=== PATIENT | female | born 1980 | race Caucasian/White ===

== ENCOUNTER 2016-10-18 17:58 | Inpatient (IN) | payer OTHER ==
--- NOTE | ~2016-10-18 | TOC ---
Unit #: [id number] #: [id number] Patient: GABRIEL WATERS [id number] [address] [place], [place] [address] [id number] MR#: [id number] NAME: GABRIEL WATERS ROOM: 234 Age: 36 Sex: F Admission Date: 10/19/2016 : 1980 Attending Physician: Adriane Calderon M.D. Primary Care Physician: No Primary Care Physician TRANSFER OF CARE SUMMARY PRINCIPAL DIAGNOSES 1. Thickening in the terminal ileum with pending pathology. 2. Intractable nausea and vomiting secondary to a gastroenteritis, question infections versus other. 3. Hypokalemia. 4. Moderate protein malnutrition. 5. Amphetamine abuse. 6. Tobaccoism. 7. Home incarceration. 8. Migraine headaches. 9. Obesity. CONSULTANTS Dr. Pleitez, gastroenterology and Dr. Hassan, general surgery. PROCEDURES 1. Exploratory laparotomy on 10/21/2016 with full thickness biopsy of the terminal ileum. There was no evidence of small bowel obstruction. 2. CT of the abdomen and pelvis with contrast on 10/19/2016 with multiple inflamed thickened small bowel loops involving the ileum and distal jejunum, this is resulting in proximal bowel dilatation. This is similar to prior studies but appears somewhat increased. A 1.5 cm right ovary cyst and prior cholecystectomy also noted. 3. Small bowel follow through on 10/20/2016 with a high grade small bowel obstruction noted. CLINICAL HISTORY AND HOSPITAL COURSE Ms. Waters is a 36-year-old female who presents to the emergency department with intractable nausea and vomiting. The patient does have a history of nausea and vomiting in the past with abnormal CT scans for which multiple imaging studies, colonoscopy and EGD were negative for Crohn disease, though patient did have a significant lymphocytic predominance of the bowel wall. CT scan here revealed worsening based upon baseline and patient was admitted for further evaluation. Patient remained afebrile and her white blood cell count was unremarkable. Dr. Pleitez was consulted. Patient's nausea and vomiting improved and she was subsequently tolerating a diet. However, small bowel follow through was done revealing what appeared to be a high grade small bowel obstruction. Patient was made NPO and G-tube was placed and LSA was consulted. The following morning, patient had significant increase in abdominal pain and patient was emergently taken for exploratory surgery to evaluate for small bowel obstruction but none was seen. Unit #: [id number] #: [id number] Patient: GABRIEL WATERS Dictated by... Adriane Calderon M.D. KATHY/gavin TD: 10/22/2016 12:36 JOB #: [id number] TRANSFER OF CARE SUMMARY Page 1 of 1 X Adriane Calderon MD X TRANSFER OF CARE SUMMARY
--- NOTE | ~2016-10-18 | CR236 ---
[facility] A Service of [facility] RADIOLOGY TEXT RESULTS PATIENT: GABRIEL LEE LOCATION: [facility] : 81 UNIT #: [id number] AGE: [address]: Adriane Calderon MD SEX: F ORDER DR: [id number] [facility] [address] [facility]. [place], [place] [address] [id number] I MR#: [id number] Acc #: [id number] NAME: GABRIEL LEE : 1980 SEX: F STUDY DATE/TIME: 10/20/2016 7:34 UNIT: [facility] ROOM: 234 STUDY DESCRIPTION: CR Small Bowel Sbft W Films Attending Physician: Adriane Calderon M.D. Ordering Physician: Enid Conley Aprn Primary Care Physician: Jesica Primary Care Physician MEDICAL IMAGING REPORT This report is preliminary unless electronic signature is present EXAM Small bowel follow-through INDICATIONS Abdominal pain. Crohn disease. Small bowel obstruction. FINDINGS Serial AP radiographs of the abdomen were obtained. Construction Pit Worker radiograph shows dilated proximal small bowel loops consistent with small bowel obstruction. Following ingestion of oral contrast, there is delayed passage of contrast. The contrast fills the proximal small bowel loops without filling of the distal small bowel loops. Images were obtained for 7 hours and 45 minutes. I would recommend a followup abdominal radiograph in the morning. FLUOROSCOPY Fluoroscopy time 0 minutes, 0 fluoroscopic images acquired. IMPRESSION High grade small bowel obstruction with opacification of only the proximal small bowel up to 7 hours and 45 minutes. Dictated by... Jack Bucio M.D. THIS IS AN ELECTRONICALLY VERIFIED REPORT Jack Bucio M.D. at 10/21/2016 7:42 AM BRYAN/brigitte TD: 10/20/2016 17:18 JOB #: [id number] [facility] A Service of [facility] RADIOLOGY TEXT RESULTS PATIENT: GABRIEL LEE LOCATION: [facility] : 81 UNIT #: [id number] AGE: [address]: Adriane Calderon MD SEX: F ORDER DR: MEDICAL IMAGING REPORT Page 1 of 1 COPY
--- NOTE | ~2016-10-18 | TOC ---
Unit #: [id number] #: [id number] Patient: GABRIEL LEE [id number] [address] [place], [place] [address] [id number] I MR#: [id number] NAME: GABRIEL LEE ROOM: 234 Age: 36 Sex: F Admission Date: 10/19/2016 : 1980 Attending Physician: Ridge He M.D. Primary Care Physician: No Primary Care Physician TRANSFER OF CARE SUMMARY ADDENDUM Please note this is a continuation of a transfer of care note done on 10/22/2016. ADDITIONAL DISCHARGE DIAGNOSES 1. Moderate protein malnutrition. 2. Enteritis with inconclusive biopsy. 3. Hyperglycemia. HOSPITAL COURSE Following the patient's exploratory laparotomy she has been maintained on TPN for the last several days. Biopsy did not reveal any definite signs of Crohn. The patient had been placed on Solu-Cortef in anticipation of a positive biopsy, but this is negative. Attempts to obtain a follow-up small bowel followthrough unfortunately were unsuccessful, given she has retained contrast from small bowel followthrough last week. The patient has now been started on a full liquid diet and did have a small amount of pain, but no nausea or vomiting. She is having some loose stool as well, but this is nonbloody. Will continue with advanced diet and will be home when able to tolerate diet. Further hospital course to be dictated as an addendum. Dictated by... Adriane Calderon M.D. KATHY/arlene TD: 10/31/2016 10:34 JOB #: [id number] TRANSFER OF CARE SUMMARY Page 1 of 1 X Adriane Calderon MD TRANSFER OF CARE SUMMARY
--- NOTE | ~2016-10-18 | CR7 ---
[facility] A Service of [facility] RADIOLOGY TEXT RESULTS PATIENT: GABRIEL LEE LOCATION: [facility] 234-01 : 82 UNIT #: [id number] AGE: [address]: Adriane Calderon MD SEX: F ORDER DR: [id number] [facility]. [place], [place] [address] [id number] MR#: [id number] Acc #: [id number] NAME: GABRIEL LEE : 1980 SEX: F STUDY DATE/TIME: 10/21/2016 7:45 UNIT: [facility] ROOM: Critical access hospital STUDY DESCRIPTION: CR Abdomen Single AP View Attending Physician: Adriane Calderon M.D. Ordering Physician: Adriane Calderon M.D. Primary Care Physician: No Primary Care Physician MEDICAL IMAGING REPORT This report is preliminary unless electronic signature is present EXAM AP abdomen, 10/21/2016. HISTORY Abdominal pain for 1 week. Small bowel obstruction. Had a small bowel follow-through yesterday. COMPARISON Acute abdominal series 12/28/2015, CT abdomen and pelvis 10/19/2016, small bowel follow-through 10/20/2016. FINDINGS Retained contrast is demonstrated within a markedly abnormally dilated small bowel loop in the left mid abdomen and this bowel loop appears similar to the small bowel follow-through, 10/20/2016, at the 7-hour 45-minute time randall. Only scant contrast is seen more distally within decompressed small bowel loops and within the proximal ascending colon. Findings are compatible with the appearance of high-grade small bowel obstruction. IMPRESSION Findings are compatible with high-grade small bowel obstruction. Persistently abnormally dilated small bowel within the left mid abdomen containing a majority of enteric contrast from yesterday's small bowel follow-through. Only scant progression of contrast into the more distal decompressed small bowel loops and within the ascending colon. Dictated by... Deann Salgado M.D. THIS IS AN ELECTRONICALLY VERIFIED REPORT [facility] A Service of [facility] RADIOLOGY TEXT RESULTS PATIENT: GABRIEL LEE LOCATION: [facility] 234-01 : [birth year] UNIT #: [id number] AGE: [address]: Adriane Calderon MD SEX: F ORDER DR: Deann Salgado M.D. at 10/22/2016 8:32 AM MATT/brigitte TD: 10/21/2016 13:11 JOB #: [id number] MEDICAL IMAGING REPORT Page 1 of 1 COPY
--- NOTE | ~2016-10-18 | FU ---
[facility] Nutrition Therapy DATE: 10/29/16 Patient: GABRIEL LEE Physician: JAVAD Address: [address] Room/Bed: [address] [place] [address], Zip: [place] [id number] Admit Date: 10/19/16 Date of : [birth year] Height: 5 5 Weight: 214 97.5 NUTRITION MONITORING/FOLLOW-UP: Reason: PT SEEN FOR FOLLOW-UP/TPN DX: SBO, ENTERITIS, ABD PAIN, N/V Anthropometrics: 5'5", WT: 214# (97 KG), BMI: 35.6 -ADMIT WEIGHT: 199# Labs: GLU: 133, CREAT: 0.5, CA+:7.9, ALB: 2.8 (10/27/16), ALT: 8, PRE-ALB: 9.9, TGs: 61 Meds: TPN, LIPIDS, KCL, PROTONIX, MILK OF MAGNESIA, PHENERGAN, ZOFRAN I&O's: 2305/502, 2 BMs NOTED Skin: PREVIOUSLY NOTED Estimated Nutrition Needs: [id number] KCAL 91-109 G PRO Assessment: CHART REVIEWED AND EVENTS NOTED. PT SEEN FOR TPN FOLLOW-UP. PER RN AND CHART, TPN HAS BEEN D/C'D AFTER LAST CURRENT BAG (CURRENTLY AT 20 ML/HR). PT REPORTS TOLERATING FULL LIQUID DIET THIS AM FOR BREAKFAST, PLANS FOR REGULAR DIET FOR DINNER. THIS RD ENCOURAGED SLOW GRADUAL PO INTAKE, PT AGREED TO ENSURE SHAKES BID, RD TO ORDER. PT REPORTED NO DIET QUESTIONS AT THIS TIME. RD TO FOLLOW. Dx: INADEQUATE ORAL INTAKE R/T CLINICAL CONDITION, ENTERITIS AND SBO AEB NPO, TPN.-RESOLVED NEW DX: ALTERED NUTRIENT NEEDS R/T CURRENT CONDITION AEB PT ON FULL LIQUID DIET. Intervention: 1. FULL LIQUID DIET-REGULAR DIET LATER 2. ENSURE SHAKED BID Monitoring, Evaluation and Goals: 1. TPN; PROVIDE >80% ESTIMATED NUTRITIONAL NEEDS-MET/RESOLVED 2. LABS; GLU, LYTES-ACTIVE 3. GI; PROMOTE REGULAR GI FUNCTION-IN PROGRESS 4. SKIN; PROMOTE HEALING OF SURGICAL SITE-IN PROGRESS NEW GOALS: 1. ORAL INTAKE; ADVANCE DIET AND TOLERATE >50% OF MEALS AND SUPPLEMENTS W/NO C/O N/V/D MONITOR: [facility] Nutrition Therapy DATE: 10/29/16 Patient: GABRIEL LEE Physician: JAVAD Address: [address] Room/Bed: [address] [place] [address], Zip: [place] [address] Admit Date: 10/19/16 Date of : [birth year] Height: 5 5 Weight: 214 97.5 -PO INTAKE/APPETITE -WEIGHTS -SUPPLEMENT INTAKE Recommendations: 1. PLEAS ORDER STRAWBERRY ENSURE SHAKES BID W/MEALS 2. APPRECIATE FAMILY AND STAFF TO ENCOURAGE SLOW GRADUAL PO INTAKE 3. ADVANCE DIET TOLERATED TO LOW FIBER RD WILL F/U PER PROTOCOL PT IS MILD/MODERATELY COMPROMISED Respectfully, MINESH PERALTA MS, RD, LD [employer] [facility] cc: client file
--- NOTE | ~2016-10-18 | TOC ---
Unit #: [id number] #: [id number] Patient: GABRIEL LEE [id number] [address] [address] [id number] I MR#: [id number] NAME: GABRIEL LEE ROOM: 234 Age: 36 Sex: F Admission Date: 10/19/2016 : 1980 Attending Physician: Adriane Calderon M.D. Primary Care Physician: No Primary Care Physician TRANSFER OF CARE SUMMARY ADDENDUM HOSPITAL COURSE The patient underwent exploratory laparotomy but no small bowel obstruction was found; however, she did undergo biopsy of her terminal ileum with pathology currently pending. Postoperatively she is doing well but is complaining about a significant amount of pain; however, I will note patient does have some history of drug seeking behavior and we will try to control the pain as best as possible without possible side effects of Dilaudid. Further hospital course to be dictated as an addendum. Dictated by... Adriane Calderon M.D. KATHY/gavin TD: 10/23/2016 13:30 JOB #: [id number] TRANSFER OF CARE SUMMARY Page 1 of 1 X Adriane Calderon MD TRANSFER OF CARE SUMMARY
--- NOTE | ~2016-10-18 | HP ---
Unit #: [id number] #: [id number] Patient: GABRIEL LEE [id number] [address] [place], [place] [address] [id number] I MR#: [id number] NAME: GABRIEL LEE ROOM: 234 Age: 36 Sex: F Admission Date: 10/19/2016 : 1980 Attending Physician: Renea Lara M.D. Primary Care Physician: No Primary Care Physician HISTORY AND PHYSICAL CHIEF COMPLAINT Intractable nausea and vomiting with abdominal pain. HISTORY This 36-year-old female with recurrent admissions for abdominal pain and history of abnormal CT scans of the abdomen, migraine headaches, is admitted for abdominal pain. The patient states that she was well until two days prior to admission when she developed nonbloody nausea, vomiting and diarrhea with periumbilical pain, sweats and chills. She presented to this emergency department last evening when she was tachycardic. Was given Bentyl, Protonix and Reglan, along with IV fluids without improvement. CT scan therefore was performed showing patient's chronic abnormalities but somewhat worse. Multiple inflamed, thickened small bowel loops mainly in the ileum and distal jejunum with more proximal bowel dilatation. The appearance was similar but showed worsening diffuse distention of the small bowel. Patient has a history of recurrent abdominal pain and diarrhea. EGD in the past showed gastritis. Normal colonoscopy 2011, and repeat colonoscopy 10/2015 showed some abnormalities in the terminal ileum but pathology only revealed hyperplastic lymphoid tissue. CT scans in the past have been abnormal showing inflammatory versus infectious changes in the small bowel. A small bowel follow through 12/01/2015 revealed very long transit time through the small bowel with mild diffuse distention but no typical features of Crohn disease. PAST MEDICAL HISTORY 1. Recurrent admissions for abdominal pain with abnormal CT scans and negative workup for inflammatory bowel disease. Please see above details. 2. Migraine headaches. 3. Surgery for Arnold-Chiari malformation. 4. Cholecystectomy. 5. Appendectomy. 6. . ALLERGIES Penicillin and nonsteroidal inflammatory drugs causing hives. HOME MEDICATIONS None. Unit #: [id number] #: [id number] Patient: GABRIEL LEE FAMILY HISTORY Negative for GI disease. SOCIAL HISTORY The patient is living with her father and daughter. She currently is under home incarceration and has an ankle bracelet. Last menstrual period was 09/24/2016 and patient denies the possibility of . She smokes about a pack per day of tobacco, does not drink alcohol and denies illicit drug use. REVIEW OF SYSTEMS Notable for nausea, vomiting, diarrhea, abdominal pain, migraines, above mentioned surgeries, tobacco abuse. All other systems were reviewed and are otherwise negative. PHYSICAL EXAMINATION GENERAL: Pleasant, moderately obese 36-year-old female currently in no acute distress. VITAL SIGNS: Temperature 98.8, pulse 113, respirations 17, blood pressure 133/72, O2 saturation is 99% on room air. HEENT: Eyes - PERRLA, extraocular muscles are intact. Pharynx is benign and edentulous. NECK: Supple without adenopathy or thyromegaly. CHEST: Clear. CARDIAC: Normal S1 and S2 without S3, S4, or murmur. ABDOMEN: Bowel sounds are present. Patient has generalized abdominal tenderness on exam, which localizes more to the periumbilical region but no rebound guarding. No hepatosplenomegaly or masses. EXTREMITIES: Without clubbing, cyanosis or edema. Patient has a left ankle home incarceration brace present. Pedal pulses are present. NEUROLOGIC: Patient is awake, alert and oriented. Cranial nerves are intact. Equal strength throughout. DIAGNOSTIC STUDIES LABORATORY STUDIES: Hematocrit is 47.8, normal white count and platelet count. SMA 12 - normal lipase. IMAGING STUDIES: CT scan - markedly abnormal with multiple inflamed, thickened, small bowel loops, particularly around the ileum and distal jejunum with more proximal bowel dilatation. The degree of bowel distention is worse than before. Right ovarian cyst. ASSESSMENT 1. Intractable nausea, vomiting, and diarrhea with abdominal pain. Patient has a chronically abnormal CT scan of the abdomen but does appear to be worse. She is being admitted to rule out inflammatory bowel disease such as Crohn disease, although her workup in the past was negative for Crohn. 2. Home incarceration. 3. Tobacco abuse. 4. History of migraines. 5. Surgery for Arnold-Chiari malformation. PLANS 1. Stool cultures. 2. Obtain urinalysis. 3. Urine tox screen, although patient did received morphine in the ER, so urine tox screen will be positive for opiates. Unit #: [id number] #: [id number] Patient: GABRIEL LEE 4. IV fluids and supportive treatment. 5. GI consultation. 6. SCDs for DVT prophylaxis. 7. Patient denies but will check a beta HCG in the morning. Dictated by Renea Lara M.D. AML/ts TD: 10/19/2016 05:05 JOB #: [id number] HISTORY AND PHYSICAL Page 1 of 1 X Renea Lara MD X HISTORY AND PHYSICAL
--- NOTE | ~2016-10-18 | XA166 ---
[facility] A Service of [facility] RADIOLOGY TEXT RESULTS PATIENT: GABRIEL LEE LOCATION: [facility] 234-01 : 82 UNIT #: [id number] AGE: [address]: Adriane Calderon MD SEX: F ORDER DR: [id number] [place], [place] [address] [id number] I MR#: [id number] Acc #: [id number] NAME: GABRIEL LEE : 1980 SEX: F STUDY DATE/TIME: 10/22/2016 10:55 UNIT: [facility] ROOM: 234 STUDY DESCRIPTION: XA PICC Line Placement WO Port Attending Physician: Adriane Calderon M.D. Ordering Physician: Gerald España M.D. Primary Care Physician: Primary Care Physician No MEDICAL IMAGING REPORT This report is preliminary unless electronic signature is present EXAM Right-sided PICC line placement INDICATION Need for IV access in a patient with small bowel obstruction. PRE-PROCEDURE The procedure was explained to the patient and/or patient customer care representative including risks, benefits, potential complications and potential for alternative forms of treatment. Informed consent was obtained, and prior to initiating the procedure a formal timeout procedure was performed. PROCEDURE Using full standard sterile barrier technique, including caps, gowns, gloves, masks, as well as sterile skin preparation and standard sterile draping, the right arm was prepped and draped in the usual fashion, and real-time sterile ultrasound guidance was used to localize an arm vein and to confirm vessel patency. A hard copy ultrasound image was recorded. After local anesthesia with 1% Xylocaine, the vein was punctured using real-time sterile ultrasound guidance, and an 0.018 guidewire was advanced into the superior vena cava, using fluoroscopic guidance. A 5 Nepalese dual-lumen PICC was then measured and deployed with the tip positioned in the superior vena cava. The position of the line was documented with a radiographic image. The line was secured in place with an adhesive dressing and an antibiotic patch was applied. Total fluoro time was 0.1 minutes. AK was 1 mGy. IMPRESSION Successful placement of a 5 Nepalese dual-lumen Power PICC via the right arm under ultrasound and fluoroscopic guidance. The tip of the PICC is in good position in the superior vena cava. [facility] A Service of [facility] RADIOLOGY TEXT RESULTS PATIENT: GABRIEL LEE LOCATION: [facility] 234-01 : [birth year] UNIT #: [id number] AGE: [address]: Adriane Calderon MD SEX: F ORDER DR: Dictated by... Mary Ellen Castañeda M.D. THIS IS AN ELECTRONICALLY VERIFIED REPORT Mary Ellen Castañeda M.D. at 10/25/2016 3:53 PM CAMILLE/adalberto TD: 10/25/2016 09:08 JOB #: [id number] MEDICAL IMAGING REPORT Page 1 of 1 COPY
--- NOTE | ~2016-10-18 | DS ---
Unit #: [id number] #: [id number] Patient: GABRIEL LEE [id number] [address] [place], [place] [address] [id number] MR#: [id number] NAME: GABRIEL LEE ROOM: 234 Age: 36 Sex: F Admission Date: 10/19/2016 : 1980 Discharge Date: 11/01/2016 Attending Physician: Ridge He M.D. Primary Care Physician: No Primary Care Physician DISCHARGE SUMMARY FINAL DISCHARGE SUMMARY Please refer to Dr. Calderon's transfer of care summary dictated from both October 22 as well as October 29. After review and discussion from October 29 moving forward, the patient was placed on IV Solu-Medrol. She showed increased an appropriate response. She was able to tolerate diet well. She left the floor several times throughout her hospital stay. She was able to complete meals without any pain and/or difficulty. Once her narcotic pain medications were deescalated, the patient stated that she felt much better and subsequently requested discharge. The patient is to follow up with her electric mule driver as an outpatient for ongoing care, Dr. Pleitez in approximately 8 to 10 weeks. She will be given a prescription for prednisone taper, Ultram as well as Protonix. All questions were answered. The patient is stable for discharge home. FINAL DISCHARGE MEDICATIONS 1. Prednisone 40 mg x10 days, 30 mg x10 days, 20 mg x10 days, 10 mg x10 days. 2. Protonix 40 mg p.o. daily. 3. Ultram 50 mg p.o. q.8 p.r.n. Dictated by... Bhanu Parker/zoila TD: 11/03/2016 07:30 JOB #: [id number] DISCHARGE SUMMARY Page 1 of 1 X Ridge He MD X DISCHARGE SUMMARY
--- NOTE | ~2016-10-18 | OR ---
Unit #: [id number] #: [id number] Patient: GABRIEL LEE [id number] [facility]. [place] [id number] [facility]. [place], [place] [address] [id number] I MR#: [id number] NAME: GABRIEL LEE ROOM: 234 Date of Procedure: 10/19/2016 Admission Date: 10/19/2016 Surgeon: Kyle Hassan Jr., M.D. : 1980 Attending Physician: Adriane Calderon M.D. OPERATIVE REPORT INDICATIONS FOR PROCEDURE The patient is a 36-year-old white female, who has had recurrent problems with nausea, vomiting, and abdominal pain. It was felt she may have Crohn disease, also felt that she may have some partial small bowel obstruction or complete small bowel obstruction. She is brought to the operating room at this time for exploratory laparotomy, possible bowel resection for small bowel obstruction. PREOPERATIVE DIAGNOSIS Chronic recurrent small bowel obstruction. POSTOPERATIVE DIAGNOSIS Abnormal distal half of the small bowel with thickening, but no point of obstruction was noted. ANESTHESIA General with endotracheal intubation. SHIFT SUPERINTENDENT Lizzy Pederson. PROCEDURES PERFORMED Exploratory laparotomy, full-thickness small bowel biopsy of the distal ileum. DESCRIPTION OF PROCEDURE The patient was positioned in supine position. After being anesthetized and intubated, she was prepped and draped in routine fashion for exploration through midline incision. An incision was made extending from the upper midline approximately 3 to 4 inches above the umbilicus to 3 to 4 inches below the umbilicus to the left of the umbilicus. This was carried down through subcutaneous tissue down through the linea alba into the peritoneal cavity. Upon opening the peritoneal cavity, there was moderate ascitic fluid. This was all removed with the suction. The remainder of incision was opened with cutting edge of the Bovie cautery. The entire small bowel was run and there was no evidence of any adhesions blocking the bowel, but definitely the entire distal half of the small bowel was very thickened and felt abnormal. There was no significant fat wrapping around the bowel. The proximal bowel was slightly dilated chronically, but there was no major obstruction. In the area of the ligament of Treitz and proximal small bowel, the bowel was small in caliber. The entire abdomen was checked. There was no evidence of any Unit #: [id number] #: [id number] Patient: GABRIEL LEE other abnormalities. The cecum was dilated as well. The small bowel was evacuated back into the stomach by milking it. After this was complete, abdomen was copiously irrigated with saline solution and a small wedge piece of the anterior small bowel wall in the area of the distal ileum was then excised and the opening closed with continuous 3-0 Vicryl canal stitch followed by interrupted 3-0 silk Lembert sutures. After this was complete, the omentum was wrapped over the top and tacked in place with 2-0 silk sutures and the abdomen again irrigated with saline solution. After all saline was removed, the midline was closed with interrupted #1 Vicryl suture in a single fascial layer closure. Subcutaneous tissue was irrigated. After hemostasis achieved with Bovie cautery, skin edges were approximated with stainless-steel skin clips and skin stapling device. Sterile dressings were applied externally. Estimated blood loss less than 100 mL. The patient received less than 2000 mL crystalloid solution during the procedure. Sponges and instrument counts were correct x3. No drains were used. No complications. The patient was taken to the recovery room with stable vital signs in satisfactory condition. Dictated by... Kyle Hassan Jr., MAnjana JAVIER/arely TD: 10/22/2016 03:54 JOB #: [id number] OPERATIVE REPORT Page 1 of 1 X Kyle Hassan MD X PROCEDURE OPERATIVE NOTE
--- NOTE | ~2016-10-18 | CR7 ---
[facility] A Service of [facility] & [facility] RADIOLOGY TEXT RESULTS PATIENT: GABRIEL LEE LOCATION: C2A 234-01 : [birth year] UNIT #: [id number] AGE: [address]: Adriane Calderon MD SEX: F ORDER DR: [id number] [facility] [address] [facility]. [place], [place] [address] [id number] I MR#: [id number] #: [id number] NAME: GABRIEL LEE : 1980 SEX: F STUDY DATE/TIME: 10/27/2016 8:07 UNIT: C2A ROOM: 234 STUDY DESCRIPTION: CR Abdomen Single AP View Attending Physician: Adriane Calderon M.D. Ordering Physician: Saud Valentine M.D. Primary Care Physician: Primary Care Physician No MEDICAL IMAGING REPORT This report is preliminary unless electronic signature is present EXAM Supine radiograph of the abdomen, 10/27/2016 HISTORY Abdomen pain, resolving small bowel obstruction. Gastritis, enteritis, colitis brain surgery 2 years ago. Symptoms began 10/18/2016. Could not perform upper GI small bowel follow-through. Patient has contrast from 10/19/2016. FINDINGS Supine radiograph of the abdomen is presented. Comparison to studies dated 10/20 and 10/21/2016. Multiple surgical clips over the right upper quadrant. Surgical skin nina midline abdomen and pelvis. Bowel gas pattern abnormal. There is ongoing distension of small bowel loops measuring up to about 3.1 cm in diameter. This represents an improvement compared to 10/20 and 10/21. Small bowel loops measured up to 4.2 cm in diameter on 10/21. There is air and contrast material seen throughout the colon. This is felt to represent contrast material from the patient's small bowel follow through 10/20/2016 suggesting a significant delay in colonic transit. The colon is mildly distended but as noted there is contrast and air seen throughout the colon to the rectum. At this point, while partial ongoing small bowel obstruction is not excluded, the radiographic appearance may favor generalized ileus. Continued followup to resolution recommended. There is no free air. Visualized bony structures are unremarkable. Dictated by... Juanito Kuhn M.D. THIS IS AN ELECTRONICALLY VERIFIED REPORT Juanito Kuhn M.D. at 10/28/2016 6:42 PM MAI/vi [facility]. [facility] A Service of [facility] RADIOLOGY TEXT RESULTS PATIENT: GABRIEL LEE LOCATION: [place] [address] : [birth year] UNIT #: [id number] AGE: [address]: Adriane Claderon MD SEX: F ORDER DR: TD: 10/27/2016 16:13 JOB #: [id number] MEDICAL IMAGING REPORT Page 1 of 1 COPY
--- NOTE | ~2016-10-18 | CT2 ---
[facility] A Service of [facility] & [facility] RADIOLOGY TEXT RESULTS PATIENT: GABRIEL LEE LOCATION: C2A 234-01 : [birth year] UNIT #: [id number] AGE: [address]: Adriane Calderon MD SEX: F ORDER DR: [id number] [facility] [address] [facility] [place], [place] [address] [id number] I MR#: [id number] Acc #: [id number] NAME: GABRIEL LEE : 1980 SEX: F STUDY DATE/TIME: 10/19/2016 00:31 UNIT: C2A ROOM: 234 STUDY DESCRIPTION: CT Abd and Pelv W Cont Attending Physician: Adriane Calderon M.D. Ordering Physician: Juan Lomax M.D. Primary Care Physician: No Primary Care Physician MEDICAL IMAGING REPORT This report is preliminary unless electronic signature is present EXAM Abdomen and pelvis CT 10/19/2016 at 0031 INDICATIONS Abdominal pain, nausea, vomiting, and diarrhea, that started yesterday. TECHNIQUE Axial images were obtained through the abdomen and pelvis following IV contrast administration. Multiplanar reformats were obtained. This CT exam was performed with one or more of the following radiation dose reduction techniques: Automatic exposure control, adjustment of mA and/or kV according to patient size, and iterative reconstruction. COMPARISON Comparison made with 12/25/2015. FINDINGS ABDOMEN: Lung bases are clear. Gallbladder is surgically absent. No biliary obstruction. Solid abdominal organs are normal. The small bowel is markedly abnormal. Multiple distended loops of jejunum are present. The loops measure nearly 5 cm in diameter. Some of the loops demonstrate a marked degree of thickening in the wall. There is some adjacent mesenteric fat stranding. Findings are very similar in appearance to the prior study although the degree of bowel distension is increased. This is presumably due to inflammatory enteritis, possibly Crohn's disease. This involves predominantly distal jejunum and ileum. PELVIS: Urinary bladder is normal. There is a trace amount of dependent free fluid. The lower colon is normal. Abnormal ileal loops are present as above. The appendix is surgically absent by history. There does appear to be a small right ovarian cyst measuring 1.5 cm. IMPRESSION STS. [facility] A Service of [facility] & [facility] RADIOLOGY TEXT RESULTS PATIENT: GABRIEL LEE LOCATION: A 234-01 : [birth year] UNIT #: [id number] AGE: [address]: Adriane Calderon MD SEX: F ORDER DR: 1. Markedly abnormal examination. Multiple inflamed thickened small bowel loops, predominately involving the ileum and distal jejunum. This results in more proximal bowel dilatation. The inflammatory changes are very similar in appearance to the patient's prior study but the degree of bowel distension has increased. This presumably reflects inflammatory enteritis such as Crohn's. The colon is within normal limits. The appendix is surgically absent. 2. Cholecystectomy. 3. 1.5 cm right ovarian cyst. 4. Trace amount of free fluid which is presumably reactive. STAT * RESULT Dictated by... Pablito Paiz Jr., M.D. THIS IS AN ELECTRONICALLY VERIFIED REPORT Pablito Paiz Jr., M.D. at 10/19/2016 9:24 PM JAIME/steven TD: 10/19/2016 12:45 JOB #: [id number] MEDICAL IMAGING REPORT Page 1 of 1 COPY
--- NOTE | ~2016-10-18 | CO ---
Unit #: [id number] #: [id number] Patient: GABRIEL LEE [id number] [address] [address] [id number] I MR#: [id number] NAME: GABRIEL LEE ROOM: 234 Age: 36 Sex: F Admission Date: 10/19/2016 : 1980 Attending Physician: Adriane Calderon M.D. Consultation Date: 10/19/2016 CONSULTATION REPORT DICTATED FOR Fredrick Pleitez M.D. REASON FOR CONSULTATION Abnormal CT, possible Crohn disease. HISTORY OF PRESENT ILLNESS The patient is a 36-year-old female, who has presented with acute onset of abdominal pain, nausea, vomiting, and diarrhea. The patient has had multiple admissions in the past with similar presentation and similar abnormal CT findings. The patient has had extensive workup in the past including EGD, colonoscopy, as well as small-bowel follow-through. Last colonoscopy was in 10/2015, which was essentially normal without evidence of Crohn disease. Abdominal CT done in the emergency room showed multiple inflamed thickened small bowel loops. The findings are similar to previous exams except worsening diffuse distention of the small bowel. The patient also complains of chills, but no history of fever or overt gastrointestinal blood loss in the form of hematemesis, melena, or hematochezia. PAST MEDICAL HISTORY Recurrent admissions for abdominal pain with nausea and vomiting, migraine headaches. PAST SURGICAL HISTORY Surgery for Arnold-Chiari malformation, cholecystectomy, appendectomy, and . ALLERGIES Penicillin and NSAIDs. HOME MEDICATIONS None. FAMILY HISTORY None for colon or pancreatic cancer, or liver disease. No family history of inflammatory bowel disease. SOCIAL HISTORY The patient is living at home with her father and daughter. She smokes about a pack of cigarettes a day. Denies alcohol or illicit drug use. REVIEW OF SYSTEMS Detailed review of organ systems notable for nausea, vomiting, abdominal Unit #: [id number] #: [id number] Patient: GABRIEL LEE pain, diarrhea. No recent weight loss. No history of fever. No history of headache, seizures, chest pain, syncope. No history of cough or hemoptysis. No history of dysuria or hematuria. No history of overt GI bleed in the form of hematemesis, melena, or hematochezia. PHYSICAL EXAMINATION GENERAL: The patient is awake, alert, and oriented, appears uncomfortable, in no acute distress. VITAL SIGNS: Stable with temperature 98.7, blood pressure 119/82, heart rate 98, and respirations 20. HEENT: There is no pallor. No scleral icterus. No lymphadenopathy. No peripheral edema. LUNGS: Clear to auscultation bilaterally. CARDIOVASCULAR: Normal heart sounds. No murmurs. ABDOMEN: Soft. Diffuse tenderness with guarding. Liver and spleen are not palpable. Bowel sounds are normal. DIAGNOSTIC STUDIES LABORATORY RESULTS: BMP show potassium 2.8, calcium 7.6, otherwise normal. LFTs on admission were also normal along with normal lipase and amylase. CBC notable for WBC 10.7, otherwise normal result. IMAGING STUDIES: Abdominal CT show markedly abnormal small bowel with multiple distended loops and marked degree of thickening in the wall. There is some adjacent mesenteric fat stranding. Findings are very similar in appearance to prior study, although the degree of bowel distention is increased. CLINICAL IMPRESSION AND PLAN The patient with recurrent abdominal pain associated with nausea, vomiting, diarrhea. Multiple CTs in the past show similar findings suggestive of Crohn disease; however, the patient has had extensive workup including EGD, colonoscopy, and small-bowel follow-through, none of which show definite evidence of Crohn disease. We will proceed with repeat small-bowel follow-through at this time. May need to consider repeat colonoscopy depending on the results of the small-bowel follow-through. The patient and plan of care discussed in detail with Dr. Pleitez. Further recommendations to follow. Thank you very much for asking us to see this patient. We appreciate the consult. Dictated by... [place] Louis/arely TD: 10/20/2016 07:16 JOB #: [id number] Unit #: [id number] #: [id number] Patient: GABRIEL LEE CONSULTATION REPORT Page 1 of 1 X X CONSULTATION REPORT
--- NOTE | ~2016-10-18 | CR4 ---
[facility] A Service of [facility] & [facility] RADIOLOGY TEXT RESULTS PATIENT: GABRIEL LEE LOCATION: C2A 234-01 : [birth year] UNIT #: [id number] AGE: [address]: Adriane Calderon MD SEX: F ORDER DR: [id number] [facility] [address] [facility]. [place], [place] [address] [id number] I MR#: [id number] Acc #: [id number] NAME: GABRIEL LEE : 1980 SEX: F STUDY DATE/TIME: 10/28/2016 8:38 UNIT: C2A ROOM: 234 STUDY DESCRIPTION: CR Abdomen Flat Upright or Dec Attending Physician: Adriane Calderon M.D. Ordering Physician: Saud Valentine M.D. Primary Care Physician: No Primary Care Physician MEDICAL IMAGING REPORT This report is preliminary unless electronic signature is present EXAMINATION KUB. DATE 10/28/2016 HISTORY Abdominal pain, resolving small bowel obstruction, gastritis. Symptoms began 10/18/2016. COMPARISON AP abdomen 10/27/2016, small bowel follow-through 10/20/2016, CT abdomen and pelvis 10/19/2016. FINDINGS Midline laparotomy nina are redemonstrated. Enteric contrast is seen within the small bowel in the left upper quadrant, within the sfg-to-unzhk abdomen. Contrast is also seen in the proximal to mid ascending colon, descending sigmoid colon to the rectum, and to a lesser degree within the transverse colon. Some of the rectal contrast appears to have passed in the interval. There has been some advancement of contrast into the transverse colon since 10/19/2016. There are persistently dilated small bowel loops particularly in the left mid to upper abdomen, with small bowel loop dilation up to 4 cm. IMPRESSION While enteric and colonic contrast does remain, some of the contrast has passed from the rectum, and some of the contrast from the ascending colon has entered the transverse colon, since 10/19/2016. There are persistently dilated small bowel loops particularly in the left mid to upper abdomen. While small bowel obstruction cannot be completely excluded, the constellations of findings would favor a continued [facility] A Service of [facility] & [facility] RADIOLOGY TEXT RESULTS PATIENT: GABRIEL LEE LOCATION: [facility] 234-01 : [birth year] UNIT #: [id number] AGE: [address]: Adriane Calderon MD SEX: F ORDER DR: generalized ileus. Continued radiographic and clinical follow up would be recommended. Dictated by... Deann Salgado M.D. THIS IS AN ELECTRONICALLY VERIFIED REPORT Deann Salgado M.D. at 10/29/2016 9:36 PM MATT/jax TD: 10/28/2016 16:16 JOB #: [id number] MEDICAL IMAGING REPORT Page 1 of 1 COPY
--- NOTE | ~2016-10-18 | CO ---
Unit #: [id number] #: [id number] Patient: GABRIEL WATERS [id number] [address] [place], [place] [address] [id number] I MR#: [id number] NAME: GABRIEL WATERS ROOM: 234 Age: 36 Sex: F Admission Date: 10/19/2016 : 1980 Attending Physician: Adriane Calderon M.D. Consultation Date: 10/19/2016 CONSULTATION REPORT DICTATED FOR Fredrick Pleitez M.D. PRIMARY CARE PHYSICIAN No primary care physician. REASON FOR CONSULTATION Abnormal CT, possible Crohn's. HISTORY OF PRESENT ILLNESS The patient is a 36-year-old female, who has presented with acute onset of abdominal pain, nausea, vomiting, and diarrhea. Dictated by... [place] Louis/arely TD: 10/20/2016 02:12 JOB #: [id number] ADDENDUM PRIMARY CARE PHYSICIAN Patti Huang M.D. REASON FOR CONSULTATION Possible small-bowel obstruction. HISTORY OF PRESENT ILLNESS Ms. Waters has presented with fairly acute onset of periumbilical abdominal pain along with nausea, vomiting, and diarrhea. She has had multiple admissions in the past for identical presentation. It is noteworthy she does have some small bowel distention on CAT scan. Her previous workup including upper endoscopy, colonoscopy, and small bowel follow-through were done at 2 different times in 2011 and 2015. In 2016, she had a colonoscopy done by Dr. Baird up to terminal ileum, which was normal. Suggest obtaining a small bowel follow-through under the current available radiologic facilities. This might be one way to see if the patient has any significant distal small bowel obstruction. The patient Unit #: [id number] #: [id number] Patient: GABRIEL WATERS will be reviewed after the small bowel follow-through is done. Thank you very much for asking me to see this pleasant woman. Dictated by... Bhanu Zavaleta/arely TD: 10/21/2016 01:51 JOB #: [id number] CONSULTATION REPORT Page 1 of 1 X Fredrick Pleitez MD CONSULTATION REPORT
--- NOTE | ~2016-10-18 | CO ---
Unit #: [id number] #: [id number] Patient: GABRIEL LEE [id number] [address] [place], [place] [address] [id number] I MR#: [id number] NAME: GABRIEL LEE ROOM: 234 Age: 36 Sex: F Admission Date: 10/19/2016 : 1980 Attending Physician: Adriane Calderon M.D. Primary Care Physician: Primary Care Physician No Consultation Date: 10/21/2016 CONSULTATION REPORT HISTORY OF PRESENT ILLNESS A 36-year-old white female with intense abdominal pain, guarding, rebound, tenderness. A CT scan showing inflamed bowel disease in the mid jejunum and ileum with obstruction. It could not tell whether this was acute or chronic. There was no transition point. However, small-bowel follow-through shows complete obstruction of the small bowel with distention and tenderness. The patient could have either Crohn disease or adhesions, but feel like she needs an emergency operation. PAST MEDICAL HISTORY She has had an episode like this about a year ago, which cleared with conservative therapy, but this one is worse. She has had brain surgery, migraine symptoms, history of colitis, and hypertension. PAST SURGICAL HISTORY Appendectomy, cholecystectomy, and section x2, the last one 3 years ago. ALLERGIES To penicillin and nonsteroidal anti-inflammatories. She is 1 pack per day smoker, but no alcohol. PHYSICAL EXAMINATION GENERAL: Cooperative, alert, white female complaining of an intense abdominal pain. HEENT: Nasogastric tube in place to decompress the stomach. ABDOMEN: The patient has on abdominal exam, distention with 1 to 2+ rebound tenderness and guarding in the upper quadrants. EXTREMITIES: Full range of motion. IMPRESSION Possible acute surgical abdomen with complete small bowel obstruction. PLAN The patient needs to have emergency laparotomy. Risks have been explained to the patient, she understands. Dictated by... Saud Valentine M.D. SELVIN/arely TD: 10/21/2016 06:50 Unit #: [id number] #: [id number] Patient: GABRIEL LEE JOB #: [id number] CONSULTATION REPORT Page 1 of 1 X Saud Valentine MD CONSULTATION REPORT
--- NOTE | ~2016-10-18 | A ---
[facility] Nutrition Therapy DATE: 10/25/16 Patient: GABRIEL LEE Physician: JAVAD Address: [address] Room/Bed: [address] [place] [address], Zip: [place] [address] Admit Date: 10/19/16 Date of : [birth year] Height: 5 5 Weight: 214 97.5 NUTRITIONAL ASSESSMENT: REASON: TPN nutrition assessment 36 yo female admitted for abdominal pain, n/v PMH: Gastritis, multiple negative work ups for IBS, cholecystectomy, appendectomy Anthropometrics: Ht: 5'5" Wt: 90.7 kg BMI: 33.3 Labs: Na+ 133 Gluc 150 Creat 0.4 Ca++ 8.1 Accuchecks 90-165 Trig (10/23): 61 Meds: TPN (25% dextrose) @ 70 mL/hr, 20% 250 mL lipids every other day, MgS04, KCl, protonix, phenergan, zofran I/O & Bowel function: 3140/5050, last BM 10/18, NGT (650 mL output x 24 hrs) Skin Integrity: Small scabs scattered BUE Surgical scar-abdomen Midline surgical incision- abdomen Edema: none noted Estimated Nutrition Needs: 9023-2972 kcals (20-25 kcals/kg) 91-109 grams protein (1.0-1.2 grams/kg) Diet: NPO Assessment: Chart reviewed, events noted. RD assessing pt for TPN; however, RD was not consulted to see this patient. Pt admitted on 10/19 for abdominal pain, now s/p exploratory laparatomy revealing enteritis and high grade SBO. Pt is now on TPN day 4 with plans for a small bowel follow through scheduled for 10/29 to determine further plan of care including NGT and diet. Lipids started to cycle yesterday, ordered every other day. RD will continue to follow the pt and provide diet education once advanced to PO diet. Please see recommendations below. Dx: Inadequate oral intake RT clinical condition, enteritis and SBO AEB NPO, TPN. Intervention: 1. TPN 2. Advance to clear liquid diet once medically feasible [facility] Nutrition Therapy DATE: 10/25/16 Patient: GABRIEL LEE Physician: JAVAD Address: [address] Room/Bed: [address] [place] [address], Zip: [place] [address] Admit Date: 10/19/16 Date of : [birth year] Height: 5 5 Weight: 214 97.5 Monitoring, Evaluation and Goals: 1. TPN; provide >80% estimated nutritional needs 2. Labs; glucose, electrolytes 3. GI; promote regular GI function 4. Skin; promote healing of surgical site Recommendations: 1. Recommend increasing TPN (25% dextrose) to 75 mL/hr to meet the pt's protein needs. This would provide: 1530 kcals dextrose 1890 kcals total 90 grams protein GUR= 3.44 *An additional 500 kcals will be provided every other day when lipids are cycled, for a total of 2390 kcals 2. Once medically feasible when SBO is resolved, recommend starting the pt on a clear liquid diet. If the pt is able to tolerate clear liquids, advance to a low fiber diet as tolerated. 3. RD will continue to follow and provide diet education as appropriate. Pt is at moderate nuritional risk. Respectfully, ARACELI BISHOP RD, LD Food and Nutritional Services [facility] cc: client file
[~2016-10-18 17:58] MED LIST: ACETAMINOPHEN; ACETAMINOPHEN PO; ALBUTEROL17 GM INH; ASACOL400 MG PO; AZULFIDINE ENT500 MG PO; BENTYL10 MG PO; BENTYL20 M1 PO; BENTYL20 MG PO; BENZONATATE PO; CIPRO PO; CLEOCIN PO; COLACE PO; DARVOCET-N 1001 TAB PO; FAMOTIDINE PO; FLAGYL PO; FLAGYL250 M1 PO; FLEXERIL10 M1 PO; FLEXERIL10 MG PO; K-DUR20 ME1 PO; KEFLEX500 MG PO; LAMISIL AT TD; LORTAB 5/500 TA1 TA1 PO; LORTAB 7.5-3251 EACH PO; LORTAB 7.5-5001 TAB PO; MAGIC MOUTHWASH PO; MEDROL DOSEPAK4 MG PO; MEDROL PO; MEDROL4 MG/DOSE- PO; NO MEDICATIONS; NORCO 10-325 TA1 TAB PO; NORCO 5/325 TAB1 TAB PO; OMEPRAZOLE40 MG PO; PEN-VEE K PO; PERIDEX480 ML PO; PHENERGAN PO; PREDNISONE PO; PRENATAL VITAMI1 TA3 PO; PROMETHAZINE V240 ML PO; TRAMADOL HCL50 M1 PO; TYLENOL #3 PO; ULTRAM PO; VICODIN 5/1 TAB 5/50 PO; VICODIN 5/500 T1 TAB PO; XANAX0.5 M1 PO; ZITHROMAX PO; ZOVIRAX800 MG PO
[2016-10-18 20:19] LABS: BASOPHIL% 0.4 % (0-2.5); DIFF IND NO; EOSINOPHIL# 0.1 X10e3 (0-0.7); EOSINOPHIL% 1.5 % (0.0-7.0); HEMATOCRIT 47.8 % (35.0-45.0); HEMOGLOBIN 15.4 gm/dL (12.0-16.0); LYMPHOCYTE# 2.7 X10e3 (1.0-3.5); MEAN CELL VOLUME 87.5 FL (83-96); MEAN CORPUSCULAR HEMOGLOBIN 28.1 PG (28-34); MEAN CORPUSCULAR HGB CONC 32.1 g/dL (30-36); MEAN PLATELET VOLUME 9.6 FL (6.5-11.5); MONOCYTE# 0.9 X10e3 (0-1.0); MONOCYTE% 10.3 % (3.0-12.0); NEUTROPHIL# 5.1 X10e3 (1.5-7.1); NEUTROPHIL% 57.8 % (40-75); PLATELET COUNT 300 X10e3 (140-420); RED BLOOD COUNT 5.47 X10e (3.90-5.30); RED CELL DISTRIBUTION WIDTH 13.7 % (11.0-15.5); WHITE BLOOD COUNT 8.9 X10e3 (4.0-10.5)
[2016-10-18 20:48] LABS: ALBUMIN SERUM 3.8 g/dL (3.5-5.0); BILIRUBIN, DIRECT 0.1 mg/dL (0.0-0.2); BILIRUBIN,INDIRECT 0.6 mg/dL (0.0-0.9); BILIRUBIN,TOTAL 0.7 mg/dL (0.2-2.0); CALCIUM SERUM 8.5 mg/dL (8.4-10.2); CREATININE SERUM 0.4 mg/dL (0.6-1.4); POTASSIUM 3.8 mmol/L (3.5-5.1); PROTEIN TOTAL SERUM 7.3 g/dL (6.0-8.3)
[2016-10-19 03:59] LABS: URINE SOURCE CLEAN CATCH
[2016-10-19 04:07] LABS: URINE APPEARANCE CLOUDY; URINE BILIRUBIN NEG (NEG); URINE BLOOD 3+ (NEG); URINE COLOR ORANGE; URINE GLUCOSE NEG (NEG); URINE KETONE 1+ (NEG); URINE LEUKOCYTE ESTERASE 1+ (NEG); URINE NITRATE NEG (NEG); URINE PH 5.5 (5-8); URINE PROTEIN 1+ (NEG); URINE SPECIFIC GRAVITY 1.075 (1.003-1.035)
[2016-10-19 04:09] LABS: CULTURE INDICATED? YES; URBCS1 AUWI INNUM /[HPF] (0-2); URINE BACTERIA AUWI 1+ (NEGATIVE); URINE SQUAMOUS EPITHELIAL CELL OCC /[HPF]; UWBCS1 AUWI 25-50 (0-5)
[2016-10-19 04:19] LABS: AMPHETAMINE POS (NEG); BARBITURATES NEG (NEG); BENZODIAZEPINES NEG (NEG); COCAINE NEG (NEG); MARIJUANA NEG (NEG); OPIATES POS (NEG); TRICYCLIC ANTIDEPRESSANTS NEG (NEG); U METHADONE NEG (NEG)
[2016-10-19 07:32] LABS: BASOPHIL# 0.1 X10e3 (0-0.3); BASOPHIL% 0.7 % (0-2.5); EOSINOPHIL# 0.2 X10e3 (0-0.7); EOSINOPHIL% 1.7 % (0.0-7.0); HEMATOCRIT 42.8 % (35.0-45.0); HEMOGLOBIN 13.9 gm/dL (12.0-16.0); LYMPHOCYTE# 3.2 X10e3 (1.0-3.5); LYMPHOCYTE% 29.4 % (17.0-45.0); MEAN CELL VOLUME 87.9 FL (83-96); MEAN CORPUSCULAR HEMOGLOBIN 28.7 PG (28-34); MEAN CORPUSCULAR HGB CONC 32.6 g/dL (30-36); MEAN PLATELET VOLUME 9.6 FL (6.5-11.5); MONOCYTE# 1.1 X10e3 (0-1.0); MONOCYTE% 10.4 % (3.0-12.0); NEUTROPHIL# 6.2 X10e3 (1.5-7.1); NEUTROPHIL% 57.8 % (40-75); PLATELET COUNT 251 X10e3 (140-420); RED BLOOD COUNT 4.86 X10e (3.90-5.30); RED CELL DISTRIBUTION WIDTH 13.7 % (11.0-15.5); WHITE BLOOD COUNT 10.7 X10e3 (4.0-10.5)
[2016-10-19 07:47] LABS: DIFF IND NO
[2016-10-19 07:57] LABS: CALCIUM SERUM 7.6 mg/dL (8.4-10.2); CREATININE SERUM 0.5 mg/dL (0.6-1.4); GLOM FILT RATE Estimated 125.4 mL/min (>60)
[2016-10-19 08:12] LABS: POTASSIUM 2.8 mmol/L (3.5-5.1)
[2016-10-20 05:26] LABS: HEMATOCRIT 38.2 % (35.0-45.0); HEMOGLOBIN 12.5 gm/dL (12.0-16.0); MEAN CELL VOLUME 87.2 FL (83-96); MEAN CORPUSCULAR HEMOGLOBIN 28.4 PG (28-34); MEAN CORPUSCULAR HGB CONC 32.6 g/dL (30-36); MEAN PLATELET VOLUME 9.5 FL (6.5-11.5); RED BLOOD COUNT 4.38 X10e (3.90-5.30); RED CELL DISTRIBUTION WIDTH 13.8 % (11.0-15.5); WHITE BLOOD COUNT 7.7 X10e3 (4.0-10.5)
[2016-10-20 06:15] LABS: BLOOD UREA NITROGEN <5 mg/dL (9-23); BUN/CREATININE RATIO 8.33; CALCIUM SERUM 7.7 mg/dL (8.4-10.2); CARBON DIOXIDE 26 mmol/L (22-31); CHLORIDE 104 mmol/L (100-111); CREATININE SERUM 0.6 mg/dL (0.6-1.4); GLOM FILT RATE Estimated 118.1 mL/min (>60); GLUCOSE FASTING 95 mg/dL (70-110); MAGNESIUM 1.8 mg/dL (1.6-3.0); POTASSIUM 3.4 mmol/L (3.5-5.1); SODIUM 137 mmol/L (135-145)
[2016-10-21 06:30] LABS: HEMATOCRIT 39.5 % (35.0-45.0); MEAN CELL VOLUME 87.3 FL (83-96); MEAN CORPUSCULAR HEMOGLOBIN 28.7 PG (28-34); MEAN CORPUSCULAR HGB CONC 32.9 g/dL (30-36); MEAN PLATELET VOLUME 9.1 FL (6.5-11.5); RED BLOOD COUNT 4.52 X10e (3.90-5.30); RED CELL DISTRIBUTION WIDTH 13.7 % (11.0-15.5); WHITE BLOOD COUNT 6.6 X10e3 (4.0-10.5)
[2016-10-21 07:46] LABS: ALKALINE PHOSPHATASE 53 U/L (32-92); ALT (SGPT) 9 U/L (10-40); AMYLASE 19 U/L (0-46); AST (SGOT) 16 U/L (10-42); BILIRUBIN,TOTAL 0.4 mg/dL (0.2-2.0); CALCIUM SERUM 8.1 mg/dL (8.4-10.2); CARBON DIOXIDE 24 mmol/L (22-31); CHLORIDE 107 mmol/L (100-111); CREATININE SERUM 0.4 mg/dL (0.6-1.4); GLUCOSE FASTING 94 mg/dL (70-110); LIPASE 17 U/L (22-51); MAGNESIUM 1.9 mg/dL (1.6-3.0); POTASSIUM 3.5 mmol/L (3.5-5.1); PROTEIN TOTAL SERUM 5.7 g/dL (6.0-8.3); SODIUM 137 mmol/L (135-145)
[2016-10-21 07:48] LABS: BLOOD UREA NITROGEN <5 mg/dL (9-23)
[2016-10-22 08:23] LABS: HEMATOCRIT 41.4 % (35.0-45.0); HEMOGLOBIN 13.2 gm/dL (12.0-16.0); MEAN CELL VOLUME 88.9 FL (83-96); MEAN CORPUSCULAR HEMOGLOBIN 28.2 PG (28-34); MEAN CORPUSCULAR HGB CONC 31.8 g/dL (30-36); MEAN PLATELET VOLUME 9.5 FL (6.5-11.5); RED BLOOD COUNT 4.66 X10e (3.90-5.30); RED CELL DISTRIBUTION WIDTH 13.8 % (11.0-15.5)
[2016-10-22 08:30] LABS: WHITE BLOOD COUNT 10.5 X10e3 (4.0-10.5)
[2016-10-22 08:58] LABS: ALBUMIN SERUM 2.7 g/dL (3.5-5.0); ALKALINE PHOSPHATASE 49 U/L (32-92); ALT (SGPT) 9 U/L (10-40); AST (SGOT) 17 U/L (10-42); BILIRUBIN,TOTAL 0.1 mg/dL (0.2-2.0); CALCIUM SERUM 8.1 mg/dL (8.4-10.2); CARBON DIOXIDE 30 mmol/L (22-31); CHLORIDE 101 mmol/L (100-111); CREATININE SERUM 0.5 mg/dL (0.6-1.4); GLOM FILT RATE Estimated 125.4 mL/min (>60); GLUCOSE FASTING 128 mg/dL (70-110); POTASSIUM 4.2 mmol/L (3.5-5.1); PROTEIN TOTAL SERUM 5.1 g/dL (6.0-8.3); SODIUM 136 mmol/L (135-145)
[2016-10-22 08:59] LABS: BLOOD UREA NITROGEN <5 mg/dL (9-23)
[2016-10-23 05:22] LABS: HEMATOCRIT 37.9 % (35.0-45.0); HEMOGLOBIN 12.5 gm/dL (12.0-16.0); MEAN CELL VOLUME 87.3 FL (83-96); MEAN CORPUSCULAR HEMOGLOBIN 28.8 PG (28-34); MEAN PLATELET VOLUME 8.9 FL (6.5-11.5); RED BLOOD COUNT 4.34 X10e (3.90-5.30); RED CELL DISTRIBUTION WIDTH 13.9 % (11.0-15.5); WHITE BLOOD COUNT 9.7 X10e3 (4.0-10.5)
[2016-10-23 06:35] LABS: ALBUMIN SERUM 2.9 g/dL (3.5-5.0); ALKALINE PHOSPHATASE 48 U/L (32-92); ALT (SGPT) 10 U/L (10-40); AST (SGOT) 21 U/L (10-42); CARBON DIOXIDE 26 mmol/L (22-31); CHLORIDE 100 mmol/L (100-111); CREATININE SERUM 0.6 mg/dL (0.6-1.4); GLOM FILT RATE Estimated 118.1 mL/min (>60); GLUCOSE FASTING 116 mg/dL (70-110); MAGNESIUM 1.6 mg/dL (1.6-3.0); PHOSPHOROUS 2.8 mg/dL (2.5-4.6); SODIUM 138 mmol/L (135-145); TRIGLYCERIDES 61 mg/dL (10-160)
[2016-10-23 07:49] LABS: BLOOD UREA NITROGEN <5 mg/dL (9-23); BUN/CREATININE RATIO 8.33
[2016-10-23 07:50] LABS: BILIRUBIN,TOTAL <0.1 mg/dL (0.2-2.0)
[2016-10-24 05:04] LABS: HEMATOCRIT 36.4 % (35.0-45.0); HEMOGLOBIN 11.8 gm/dL (12.0-16.0); MEAN CELL VOLUME 88.6 FL (83-96); MEAN CORPUSCULAR HEMOGLOBIN 28.7 PG (28-34); MEAN CORPUSCULAR HGB CONC 32.4 g/dL (30-36); MEAN PLATELET VOLUME 8.5 FL (6.5-11.5); RED BLOOD COUNT 4.11 X10e (3.90-5.30); RED CELL DISTRIBUTION WIDTH 13.9 % (11.0-15.5); WHITE BLOOD COUNT 8.6 X10e3 (4.0-10.5)
[2016-10-24 06:32] LABS: ALBUMIN SERUM 2.8 g/dL (3.5-5.0); ALKALINE PHOSPHATASE 46 U/L (32-92); ALT (SGPT) 10 U/L (10-40); AST (SGOT) 20 U/L (10-42); BLOOD UREA NITROGEN 6 mg/dL (9-23); CALCIUM SERUM 8.1 mg/dL (8.4-10.2); CARBON DIOXIDE 30 mmol/L (22-31); CHLORIDE 101 mmol/L (100-111); CREATININE SERUM 0.5 mg/dL (0.6-1.4); GLOM FILT RATE Estimated 125.4 mL/min (>60); GLUCOSE FASTING 97 mg/dL (70-110); MAGNESIUM 1.8 mg/dL (1.6-3.0); PHOSPHOROUS 2.8 mg/dL (2.5-4.6); POTASSIUM 3.4 mmol/L (3.5-5.1); PROTEIN TOTAL SERUM 5.7 g/dL (6.0-8.3); SODIUM 138 mmol/L (135-145)
[2016-10-24 06:34] LABS: BILIRUBIN,TOTAL <0.1 mg/dL (0.2-2.0)
[2016-10-25 08:57] LABS: BUN/CREATININE RATIO 17.5; CALCIUM SERUM 8.1 mg/dL (8.4-10.2); CREATININE SERUM 0.4 mg/dL (0.6-1.4); PHOSPHOROUS 3.5 mg/dL (2.5-4.6); POTASSIUM 4.1 mmol/L (3.5-5.1)
[2016-10-26 05:46] LABS: HEMATOCRIT 41.4 % (35.0-45.0); HEMOGLOBIN 13.2 gm/dL (12.0-16.0); MEAN CELL VOLUME 88.8 FL (83-96); MEAN CORPUSCULAR HEMOGLOBIN 28.3 PG (28-34); MEAN CORPUSCULAR HGB CONC 31.9 g/dL (30-36); MEAN PLATELET VOLUME 9.1 FL (6.5-11.5); RED BLOOD COUNT 4.66 X10e (3.90-5.30); RED CELL DISTRIBUTION WIDTH 13.8 % (11.0-15.5); WHITE BLOOD COUNT 11.4 X10e3 (4.0-10.5)
[2016-10-26 07:03] LABS: ALBUMIN SERUM 2.8 g/dL (3.5-5.0); ALKALINE PHOSPHATASE 49 U/L (32-92); ALT (SGPT) 8 U/L (10-40); AST (SGOT) 16 U/L (10-42); BLOOD UREA NITROGEN 11 mg/dL (9-23); CALCIUM SERUM 8.3 mg/dL (8.4-10.2); CARBON DIOXIDE 28 mmol/L (22-31); CHLORIDE 101 mmol/L (100-111); CREATININE SERUM 0.5 mg/dL (0.6-1.4); GLOM FILT RATE Estimated 125.4 mL/min (>60); GLUCOSE FASTING 158 mg/dL (70-110); MAGNESIUM 1.9 mg/dL (1.6-3.0); PROTEIN TOTAL SERUM 6.3 g/dL (6.0-8.3); SODIUM 135 mmol/L (135-145)
[2016-10-26 07:10] LABS: BILIRUBIN,TOTAL <0.1 mg/dL (0.2-2.0)
[2016-10-27 07:25] LABS: CALCIUM SERUM 8.2 mg/dL (8.4-10.2); CREATININE SERUM 0.5 mg/dL (0.6-1.4); GLOM FILT RATE Estimated 125.4 mL/min (>60); MAGNESIUM 2.1 mg/dL (1.6-3.0); PHOSPHOROUS 2.5 mg/dL (2.5-4.6); POTASSIUM 4.4 mmol/L (3.5-5.1); PREALBUMIN 9.9 mg/dL (17.0-42.0)
[2016-10-28 06:22] LABS: BUN/CREATININE RATIO 27.5; CALCIUM SERUM 7.7 mg/dL (8.4-10.2); CREATININE SERUM 0.4 mg/dL (0.6-1.4); MAGNESIUM 1.9 mg/dL (1.6-3.0); PHOSPHOROUS 2.5 mg/dL (2.5-4.6); POTASSIUM 4.2 mmol/L (3.5-5.1)
[2016-10-29 08:49] LABS: CALCIUM SERUM 7.9 mg/dL (8.4-10.2); CREATININE SERUM 0.5 mg/dL (0.6-1.4); GLOM FILT RATE Estimated 125.4 mL/min (>60); POTASSIUM 3.8 mmol/L (3.5-5.1)
[2016-10-30 07:11] LABS: CALCIUM SERUM 7.8 mg/dL (8.4-10.2); CREATININE SERUM 0.5 mg/dL (0.6-1.4); GLOM FILT RATE Estimated 125.4 mL/min (>60); MAGNESIUM 1.8 mg/dL (1.6-3.0); PHOSPHOROUS 3.6 mg/dL (2.5-4.6); POTASSIUM 3.3 mmol/L (3.5-5.1)
[2016-10-30 07:40] LABS: HEMATOCRIT 32.7 % (35.0-45.0); HEMOGLOBIN 10.2 gm/dL (12.0-16.0); MEAN CELL VOLUME 87.7 FL (83-96); MEAN CORPUSCULAR HEMOGLOBIN 27.5 PG (28-34); MEAN CORPUSCULAR HGB CONC 31.3 g/dL (30-36); MEAN PLATELET VOLUME 8.9 FL (6.5-11.5); RED BLOOD COUNT 3.73 X10e (3.90-5.30); RED CELL DISTRIBUTION WIDTH 14.1 % (11.0-15.5); WHITE BLOOD COUNT 12.2 X10e3 (4.0-10.5)
[2016-10-30 18:48] LABS: CALCIUM SERUM 7.4 mg/dL (8.4-10.2); CREATININE SERUM 0.5 mg/dL (0.6-1.4); GLOM FILT RATE Estimated 125.4 mL/min (>60); MAGNESIUM 2.2 mg/dL (1.6-3.0); POTASSIUM 3.5 mmol/L (3.5-5.1)
[2016-11-01 06:57] LABS: HEMATOCRIT 32.8 % (35.0-45.0); HEMOGLOBIN 10.7 gm/dL (12.0-16.0); MEAN CELL VOLUME 86.5 FL (83-96); MEAN CORPUSCULAR HEMOGLOBIN 28.1 PG (28-34); MEAN CORPUSCULAR HGB CONC 32.5 g/dL (30-36); MEAN PLATELET VOLUME 8.5 FL (6.5-11.5); RED BLOOD COUNT 3.79 X10e (3.90-5.30); WHITE BLOOD COUNT 15.6 X10e3 (4.0-10.5)
[2016-11-01 07:14] LABS: CREATININE SERUM 0.5 mg/dL (0.6-1.4); GLOM FILT RATE Estimated 125.4 mL/min (>60); POTASSIUM 3.4 mmol/L (3.5-5.1)
[2016-11-01] MEDS ORDERED: PROTONIX PO (09:57)
[2016-11-01] MEDS ORDERED: PREDNISONE10 M1 PO (09:58)
[2016-11-01] MEDS ORDERED: ULTRAM PO (09:58)
[2016-11-01] MEDS ORDERED: UCERIS9 MG PO (09:59)
== END 2016-11-01 11:06 | disposition home or self-care (01) | DRG 345 ==
LOC: CED 17:58 → CEDOF 10-19 01:43 → C2A 10-19 01:45 → CEDOF 10-19 01:45 → C2A 10-19 03:16 → CEDOF 10-19 03:16 → C2A 10-19 06:42
PROVIDERS: Emergency Medicine; Family Medicine; Internal Medicine; Surgery
PROC: 0DBB0ZX Excision of Ileum, Open Approach, Diagnostic (ICD-10-PCS; principal; 2016-10-19)
PROC: 02HV33Z Insertion of Infusion Device into Superior Vena Cava, Percutaneous Approach (ICD-10-PCS; 2016-10-22)
PROC: B518YZA Fluoroscopy of Superior Vena Cava using Other Contrast, Guidance (ICD-10-PCS; 2016-10-22)
PROC: B548ZZA Ultrasonography of Superior Vena Cava, Guidance (ICD-10-PCS; 2016-10-22)
DX: K52.9 Noninfective gastroenteritis and colitis, unspecified (principal); K56.7 Ileus, unspecified; E44.0 Moderate protein-calorie malnutrition; F17.210 Nicotine dependence, cigarettes, uncomplicated; R10.9 Unspecified abdominal pain; R11.2 Nausea with vomiting, unspecified; G43.909 Migraine, unspecified, not intractable, without status migrainosus; Z90.49 Acquired absence of other specified parts of digestive tract; Z88.0 Allergy status to penicillin; R73.9 Hyperglycemia, unspecified; E87.6 Hypokalemia; F15.10 Other stimulant abuse, uncomplicated; E66.9 Obesity, unspecified; Z68.33 Body mass index [BMI] 33.0-33.9, adult; R00.0 Tachycardia, unspecified
CPT/HCPCS: 36415; 74000; 74020; 74177; 74250; 76937; 77001; 80048; 80053; 80076; 80307; 81003; 82150; 82947; 83036; 83690; 83735; 84100; 84132; 84134; 84478; 84703; 85025; 85027; 86140; 87086; 88305; 96361; 96372; 96374; 96375; 99285; C1751; C9113; J0330; J0500; J0696; J1170; J1650; J1720; J1956; J2250; J2270; J2405; J2710; J2765; J2930; J3010; J3475; J3480; Q9967